=== PATIENT | male | born 1995 | race African-American/Black ===

== ENCOUNTER 2019-04-30 13:47 | Outpatient (CLI) | payer OTHER ==
--- NOTE | 2019-04-30 15:04 | MRI Report ---
Reason: PAIN IN RT KNEE Procedure Date: 04/30/2019 Accession Number: [id number] / [id number] Procedure: MRI - Knee RT W/O CPT Code: Final Report FULL RESULT: EXAM: RIGHT KNEE MRI WITHOUT CONTRAST EXAM DATE: 04/30/2019 02:35 PM. CLINICAL HISTORY: Right knee pain. COMPARISON: None. TECHNIQUE: Multiplanar, multisequence T1-weighted and fluid-sensitive sequences of the knee without contrast. Other: None. FINDINGS: Bones: No fractures or subluxations. No marrow edema. No bone lesions. Articular Cartilage: Unremarkable. Medial Meniscus: The medial meniscus is intact. Lateral Meniscus: The lateral meniscus is intact. Cruciate Ligaments: The anterior and posterior cruciate ligaments are intact. Collateral Ligaments: The medial collateral and lateral collateral ligamentous structures are intact. Tendons: There is thickening of the proximal patella tendon, suggestive of tendinosis. There is a central fluid signal intensity cleft in the deep surface of the tendon involving greater than 50% of the tendon thickness suggestive of a partial-thickness tear. The tear measures approximately 4 x 7 mm, and separates the tendon from the inferior pole of the patella. The findings are consistent with tendinosis and a high-grade partial-thickness tear. There is edema of the adjacent infrapatellar fat pad. The quadriceps tendon and popliteus tendons are intact. Musculature: No edema or fatty atrophy. Other: There is a small joint effusion. No popliteal cyst. No loose bodies. The medial and lateral retinacula are intact. The subcutaneous tissues and fat pads are unremarkable. IMPRESSION: 1. Proximal patellar tendinosis and partial-thickness tear. 2. Small joint effusion. RADIA
== END 2019-04-30 13:48 | disposition home or self-care (01) ==
LOC: DI 13:47
DX: S76.111A Strain of right quadriceps muscle, fascia and tendon, initial encounter (principal); M25.461 Effusion, right knee

== ENCOUNTER 2020-01-31 06:27 | Day surgery (SDC) | payer OTHER ==
[~2020-01-31 06:27] MED LIST: CEFAZOLIN SODIUM IN 0.9 % NACL 2 GM/100 ML BAG IV ONE
[2020-01-31] MEDS ORDERED: LACTATED RINGERS 1,000 ML IV ONE ×2 (07:02→09:00)
[2020-01-31] MEDS ORDERED: EPINEPHrine 1 MG/ML AMP ONE (07:14)
[2020-01-31] MEDS ORDERED: BUPIVACAINE 0.25% PF 30 ML VIAL ONE (07:14)
--- NOTE | 2020-01-31 07:26 | ANESTHESIA ---
Pre-Anesthesia VS, & Labs - Diagnosis R knee patellar tendon tendinitis - Procedure R knee scope with patellar tendon debridement Vital Signs: Temp Pulse Resp BP Pulse Ox 36.3 C L 70 16 124/75 98 01/31/20 06:42 01/31/20 06:42 01/31/20 06:42 01/31/20 06:42 01/31/20 06:42 Height 5 ft 7 in Weight (kg) 87.5 kg Body Mass Index 29.7 - NPO >8 hours Home Medications and Allergies Home Medications: Ambulatory Orders Tretinoin/Emol Cmb9/Skin Cln1 [Tretin-X 0.1% Combo Pack] 1 each TP 01/21/20 Acetaminophen [Tylenol Extra Strength] 2 PRN 01/31/20 Tretinoin/Emol Cmb9/Skin Cln1 [Tretin-X 0.1% Combo Pack] 1 each TP 01/21/20 Acetaminophen [Tylenol Extra Strength] 2 PRN 01/31/20 Allergies/Adverse Reactions: Allergies Allergy/AdvReac Type Severity Reaction Status Date / Time No Known Drug Allergies Allergy Verified 01/21/20 10:46 Anes History & Medical History - Anesthetic History Anesthesia Complications: reports: No previous complications Family history of Anesthesia Complications: Denies Family history of Malignant Hyperthermia: Denies - Medical History Cardiovascular: reports: None Pulmonary: reports: None Gastrointestinal: reports: None Urinary: reports: None Neuro: reports: None Musculoskeletal: reports: Other Endocrine/Autoimmune: reports: None Skin: reports: Other Smoking Status: Never smoker Exam General: Alert, Oriented x3, Cooperative Dental: WNL Mouth Opening: Greater than 4 Fingerbreadths Neck Mobility: Normal Mallampati classification: I Thyromental Distance: greater than 6 cm Respiratory: Lungs clear, Normal breath sounds, No respiratory distress Cardiovascular: Regular rate Neurological: Normal speech Mental/Cognitive Status: Alert/Oriented X3, Normal for patient Cognitive Status: Within normal limits Plan Anesthesia Type: General Consent for Procedure(s) Verified and Reviewed: Yes Code Status: Attempt Resuscitation ASA classification: 1-Healthy patient Is this case an emergency?: No
[2020-01-31] MEDS ORDERED: ePHEDrine 50 MG/ML VIAL IVP ONE (07:34)
[2020-01-31] MEDS ORDERED: PROPOFOL 200 MG/20 ML VIAL IVP ONE (07:34)
[2020-01-31] MEDS ORDERED: fentaNYL 250 MCG/5 ML VIAL IVP ONE (07:34)
[2020-01-31] MEDS ORDERED: KETOROLAC 30 MG/ML VIAL IVP ONE (07:34)
[2020-01-31] MEDS ORDERED: MIDAZOLAM 2 MG/2 ML VIAL IVP ONE (07:34)
[2020-01-31] MEDS ORDERED: ONDANSETRON 4 MG/2 ML VIAL IVP ONE (07:34)
[2020-01-31] MEDS ORDERED: DEXAMETHASONE 4 MG/ML VIAL IVP ONE (07:34)
[2020-01-31] MEDS ORDERED: BUPIVACAINE 0.25% PF 30 ML VIAL SUBQ ONE (07:49)
[2020-01-31] MEDS ORDERED: EPINEPHrine 1 MG/ML AMP IR ONE (07:49)
[2020-01-31] MEDS ORDERED: ATROPINE ABBOJECT 1 MG/10 ML SYRINGE IVP PRN (09:02)
[2020-01-31] MEDS ORDERED: NALOXONE 0.4 MG/ML VIAL IVP PRN (09:02)
[2020-01-31] MEDS ORDERED: fentaNYL 100 MCG/2 ML VIAL IVP PRN (09:02)
[2020-01-31] MEDS ORDERED: MORPHINE 2 MG/ML CARPUJECT IVP PRN (09:02)
[2020-01-31] MEDS ORDERED: ONDANSETRON 4 MG/2 ML VIAL IVP PRN ×2 (09:02→09:15)
[2020-01-31] MEDS ORDERED: oxyCODONE 5 MG TABLET PO PRN (09:15)
[2020-01-31] MEDS: HYDROmorphone 0.5 MG/0.5 ML SYRINGE IVP PRN ×2 (09:26→09:28)
--- NOTE | 2020-01-31 09:28 | OPERATIVE REPORT ---
Operative Report - Other Other Information/Narrative: Date of Surgery: 31 January 2020 Pre-Op Diagnosis: Right patellar tendinitis Procedure: Right knee arthroscopy with fat pad debridement. Open patellar tendon debridement Postop Diagnosis: Same Primary Surgeon: Jack Concepcion Secondary Surgeon: Jayson Arndt Complications: None Tourniquet Time: 50 minutes EBL: 5 cc Indication For Surgery: 24-year-old male with insidious onset patellar tendinitis at the inferior pole of the patella. He has had this for nearly 2- 1/2 years and has not responded to conservative treatment. The risks, benefits, and alternatives were discussed. Risks include pain, bleeding, infection, damage to nearby structures and cartilage, lack of symptom relief, need for further surgery, DVT, PE, stroke, and . Written consent was obtained. Examination Under Anesthesia: ROM equal to the contralateral side. Stable dial at 30 & 90 degrees. Stable to varus and valgus stressing at 0 & 30 degrees. 2 a Maricruz. Normal Pivot shift. No mechanical sensation Arthroscopic Findings: Loose bodies -none Synovium -hypertrophic and injected, ligamentum mucosum was thick and adherent to the ACL. The synovium and fat pad was debrided from the anterior knee, there was additionally some scarring seen in the suprapatellar pouch and this was taken down. No true plica was appreciated but there was exuberant fat Patella cartilage -normal Trochlear cartilage -partial thickness linear tracking without true fissuring Medial femoral condyle cartilage -normal Medial tibial plateau cartilage -normal Medial meniscus -normal Anterior cruciate ligament -the synovium was adherent to it but it was normal Posterior cruciate ligament -normal Lateral femoral condyle cartilage -normal Lateral tibial plateau cartilage -slight fraying at the insertion of the posterior lateral root, this was debrided Lateral meniscus -normal Procedure in Detail: The patient was met in the pre-operative hold area on the day of the procedure. The operative extremity was signed and questions were answered. The patient was brought to the operating room and a general anesthetic was administered. Supine position was used and bony prominences were padded. An examination under anesthesia was performed. Standard prepping and draping was performed. A time out confirmed patient identification, laterality, procedure, allergies, antibiotics, and images. An Esmarch was used to exsanguinate the limb and the tourniquet was elevated to 250 mmHg. A standard diagnostic arthroscopy of the knee was performed through anterolateral and anteromedial portal sites. The anteromedial portal was created under direct visualization after localizing with a spinal needle. The findings can be found above. I was unable to get into the medial joint through the typical fashion because of the exuberant and adherent fat pad and synovium. I therefore pushed through into the suprapatellar pouch then debrided back taking the fat pad down all the way to the ACL. Ligamentum mucosum was excised and it was very thick. All exuberant fat pad was debrided until the joint appeared more normal. I then went into the suprapatellar pouch and debrided some adhesions. Final images were taken and all arthroscopic fluid and instruments were removed from the knee. A 3 cm incision was then made at the pole of the patella and sharp dissection was brought down through the bursa into the peritenon. The peritenon and the patella tendon was split midline in line with its fibers. Unhealthy portions of the tendon were found deep within the split and they were sharply excised with a 15 blade. Nirschl technique was used to ensure all unhealthy tissue had been excised. I then used a rondure to complete the debridement and excised unhealthy appearing fat tissue in the area. The bone was then debrided to a bleeding base using a rondure. And or 2.0 mm drill holes were placed into the patella taking care to not go into the joint. The wound was then irrigated copiously. The peritenon was closed with a running 0 Vicryl. The skin incisions were closed in the typical fashion. Steri strips were applied. 30cc of 0.25% Marcaine without epinephrine was injected near the portal sites. A sterile dressing and compression stocking was placed. The patient was awakened and transferred to recovery in stable condition.
--- NOTE | 2020-01-31 09:31 | ANESTHESIA POST OP EVALUATION ---
Anesthesia Post Eval - Post Anesthesia Eval Vitals: Last Vital Signs Temp 36.4 C L 01/31/20 09:25 Pulse 85 01/31/20 09:25 Resp 12 01/31/20 09:25 BP 115/69 01/31/20 09:25 Pulse Ox 100 01/31/20 09:25 CV Function Including HR & BP: positive: Stable Pain Control: positive: Satisfactory Nausea & Vomiting: positive: Negative Mental Status: positive: Baseline Respiratory Status: Airway Patent Hydration Status: Satisfactory Anesthesia Complications: positive: None
[2020-01-31] MEDS ORDERED: fentaNYL 100 MCG/2 ML VIAL ONE (09:37)
[2020-01-31] MEDS ORDERED: LACTATED RINGERS 1,000 ML IV SCH (10:00)
[2020-01-31] MEDS ORDERED: oxyCODONE 5 MG TABLET ONE (10:17)
[2020-01-31 10:58] VITALS: BP 127/76
== END 2020-01-31 06:28 | disposition home or self-care (01) ==
LOC: SDS 06:27
PROVIDERS: ATTEND Orthopaedic Surgery
DX: M76.51 Patellar tendinitis, right knee (principal); M67.261 Synovial hypertrophy, not elsewhere classified, right lower leg; M23.8X1 Other internal derangements of right knee